=== PATIENT | male | born 2000 | race Caucasian/White ===

== ENCOUNTER 2022-04-05 16:14 | Emergency (ER) | payer BC, SELFPAY ==
--- NOTE | ~2022-04-05 | XR_ITS ---
EXAM: XR abdomen/kub 1V DATE: 04/05/2022 16:53 HISTORY: left side groin pain . COMPARISON: None available. FINDINGS: Clear lung bases. Normal bowel gas pattern. No organomegaly. No abnormal abdominal calcifi cation. Regional bones and soft tissues normal for age. IMPRESSION: Unremarkable abdominal radiograph findings. Reviewed, dictated and finalized at location [facility]UR[facility]
[2022-04-05 16:23] VITALS: BP 113/73; PULSE 72; RESP 16; TEMP 37; O2SAT 99
--- NOTE | 2022-04-05 16:37 | ED.ABDPAIN ---
HPI - Abdominal Pain General Chief Complaint: Urogenital-Male Stated Complaint: LOW ABD/GROIN PAIN/BACK PAIN/FEVER Time Seen by Provider: 04/05/22 16:37 Source: patient and RN notes reviewed Mode of arrival: ambulatory Limitations: no limitations History of Present Illness HPI narrative: 22-year-old male presents with concern for left lower groin pain, intermittent left lower back pain, intermittent dysuria. He denies hematuria, frequency, urgency. Denies testicular pain, swelling, redness. He denies penile discharge, rash, lesions. He reports possibility of exposure to STI due to unprotected sex in January. He denies fever, aches, chills, sweats. MD elicited complaint: other (Groin pain) Related Data Home Medications Medication Instructions Recorded Confirmed No Home Medications 04/05/22 04/05/22 Allergies Allergy/AdvReac Type Severity Reaction Status Date / Time No Known Allergies Allergy Verified 04/05/22 16:29 Review of Systems Review of Systems: CONSTITUTIONAL: Denies malaise, chills, sweats, or fever. ENT: Denies rhinorrhea, congestion, sinus pain, otalgia or sore throat. CARDIOVASCULAR: Denies chest pain, palpitations, or edema. RESPIRATORY: Denies cough or dyspnea. GASTROINTESTINAL: Denies abdominal pain, nausea, vomiting, diarrhea, bloody, or mucous stools. Reports (pain GENITOURINARY: Reports dysuria. Denies frequency, urgency, penile discharge, hematuria. MUSCULOSKELETAL: Denies myalgia. Reports intermittent left low back pain NEUROLOGIC: Denies headache. All systems reviewed & are unremarkable except as noted in HPI and below PMFSH Comments At time of signature, agree with nursing past medical, surgical, social and family history. There is no relevant family history pertinent to the presenting complaint Exam Narrative: GENERAL: Well-appearing, well-nourished, and in no acute distress. HEAD: Normocephalic, atraumatic. EYES: PERRLA, conjunctivae clear, and EOMI. ENT: Nares clear, turbinates pink, no rhinorrhea or epistaxis. Mucous membranes moist. Oropharynx without edema, erythema, or lesions. Tonsils not enlarged and without exudate. NECK: Supple. No lymphadenopathy CHEST: Speaks in full sentences. No respiratory distress. HEART: Regular rate and rhythm. ABDOMEN: Soft, flat, nondistended, nontender. No guarding, rebound tenderness, or rigidity. No pulsatile masses. Bowel sounds present in all four quadrants. No organomegaly. Negative Mensah?s sign. No periumbilical tenderness. No Supra public tenderness or distension. Good femoral pulses bilaterally. No hernia noted. No scars or surface trauma. No groin tenderness SKIN: Warm, dry, no rash. NEURO: Alert and oriented x3. PSYCH: Normal mood and affect : General: Yes bladder normal to palpation Male General Exam: Yes normal external exam Penis: Yes normal penis Meatus: meatus normal Scrotum: scrotum normal Testes: Testes normal Course Course Emergency Course: Patient is aware of diagnosis, understands and agrees to treatment plan. Anticipatory guidance given. Patient agrees to follow-up as directed and is aware of reasons to seek care at the emergency department. Portions of this record may have been created with voice recognition software Level of Care: Express Care Visit Vital Signs Vital signs: Vital Signs Temperature 98.6 F 04/05/22 16:23 Pulse Rate 72 04/05/22 16:23 Respiratory Rate 16 04/05/22 16:23 Blood Pressure 113/73 04/05/22 16:23 Pulse Oximetry 99 04/05/22 16:23 Temperature 98.6 F 04/05/22 16:23 Pulse Rate 72 04/05/22 16:23 Respiratory Rate 16 04/05/22 16:23 Blood Pressure 113/73 04/05/22 16:23 Pulse Oximetry 99 04/05/22 16:23 Reviewed. MDM - Abdominal Pain Imaging Data My impression: Images reviewed, interpreted by radiologist, agree, see report. Radiologist's impression: EXAM:? XR abdomen/kub 1V DATE: 04/05/2022 16:53 HISTORY: left side groin pain . LYRIC
[2022-04-05] MEDS: cefTRIAXone 500 MG, LIDOCAINE HCL 1% LOCAL INJ 1 ML IM (17:05)
== END 2022-04-05 17:20 | disposition home or self-care (01) ==
PROVIDERS: Emergency Provider Nurse Practitioner
DX: R10.32 Left lower quadrant pain (principal); Z11.3 Encounter for screening for infections with a predominantly sexual mode of transmission
CPT/HCPCS: 74018; 81003; 87491; 87591; 87661; 96372; 99214; G0463; J0696

== ENCOUNTER 2022-05-15 12:08 | Emergency (ER) | payer BC, SELFPAY ==
--- NOTE | 2022-05-15 12:14 | ED.DENTAL ---
HPI - Dental/Oral General Chief complaint: Dental/Oral Stated complaint: DENTAL ABSCESS Time Seen by Provider: 05/15/22 12:17 Source: patient and RN notes reviewed History of Present Illness HPI Narrative: Patient is a 22-year-old male who presents to urgent care with complaints of left lower dental pain and facial swelling. Patient states that it started 3 days ago. Patient was on antibiotics approximately 2 or 3 months ago for the same tooth and has not followed up with his dentist. Patient states that he did call them today and they are unable to get him in for approximately 1 month. Patient states that he did crack the tooth off sometime ago. Denies any fever, nausea or vomiting. States that he has been using ibuprofen which has resolved the pain. No other acute complaints. No acute distress noted. Patient aware of the plan of care. Some parts of this dictation were generated by voice recognition software and may contain typographical and/or grammatical inaccuracies. Related Data Allergies Allergy/AdvReac Type Severity Reaction Status Date / Time No Known Allergies Allergy Verified 04/05/22 16:29 Review of Systems Review of Systems: CONSTITUTIONAL: Denies fever, chills, or sweats. EYES: Denies visual changes, redness, or discharge. ENT: Denies rhinorrhea, congestion, sore throat, or otalgia. Reports of left lower facial swelling and dental pain CARDIOVASCULAR: Denies chest pain, palpitations, or edema. RESPIRATORY: Denies cough or dyspnea. GASTROINTESTINAL: Denies abdominal pain, nausea, vomiting, or diarrhea. GENITOURINARY: Denies dysuria or hematuria. SKIN: Denies rash or itching. MUSCULOSKELETAL: Denies back pain, joint pain, or myalgia. NEUROLOGIC: Denies headache, numbness, or weakness. All other systems reviewed are negative, except as documented in HPI. PMFSH Comments At the time of my signature, I reviewed and agree with the nursing past medical, surgical, social, and family history. There is no relevant family history pertinent to the patient complaint. Exam Narrative: GENERAL: This is a well-nourished, well-developed patient, in no apparent distress. HEAD: normocephalic, atraumatic. EYES: PERRL. Sclera clear/white. Vision is grossly intact. EARS: External ears normal, NOSE: External nose normal with no obvious nasal discharge, nares without redness, no rhinorrhea. THROAT: Mucous membranes moist, posterior pharynx clear. DENTAL: Broken contest to the front of tooth 19. With left lower facial swelling NECK: Neck supple SKIN: warm, intact with no suspicious lesions or rash, good texture and turgor. NEURO: awake, alert, and oriented to person, place and time. There were no obvious focal neurologic abnormalities. EXTREMITIES: No clubbing, cyanosis, or edema. Course Course Level of Care: Express Care Visit Vital Signs Vital signs: Vital Signs Temperature 98.4 F 05/15/22 12:19 Pulse Rate 76 05/15/22 12:19 Respiratory Rate 16 05/15/22 12:19 Blood Pressure 124/72 05/15/22 12:19 Pulse Oximetry 99 05/15/22 12:19 Oxygen Delivery Room Air 05/15/22 12:19 Temperature 98.4 F 05/15/22 12:19 Pulse Rate 76 05/15/22 12:19 Respiratory Rate 16 05/15/22 12:19 Blood Pressure 124/72 05/15/22 12:19 Pulse Oximetry 99 05/15/22 12:19 Oxygen Delivery Room Air 05/15/22 12:19 Reviewed MDM - Dental/Oral MDM Narrative Medical decision making narrative: Advised patient complete the oral antibiotic regimen as prescribed. Be sure to eat and drink with the medication. Be aware that if you are not following up with a dentist to 60 underlying cause, the abscess will continue to reoccur. Continue Tylenol/ibuprofen as needed for pain or discomfort. Use ice for swelling. Follow-up with your dentist within 2-5 days or for worsening symptoms or failure to improve. Differential Diagnosis Differential diagnosis: Likely gingival abscess, dental caries, toothache, dental abscess, fracture of
[2022-05-15 12:19] VITALS: BP 124/72; PULSE 76; RESP 16; TEMP 36.9; O2SAT 99
== END 2022-05-15 12:47 | disposition home or self-care (01) ==
PROVIDERS: Emergency Provider Nurse Practitioner Family
DX: K04.7 Periapical abscess without sinus (principal)
CPT/HCPCS: 99213; G0463